=== PATIENT | female | born 1955 | race Caucasian/White ===

== ENCOUNTER 2020-12-14 06:58 | Emergency (ER) | payer MEDICARE ==
[~2020-12-14] VITALS: Ht 162.6 cm; Wt 62.0 kg
[~2020-12-14 06:58] MED LIST: AMBIEN5 MG PO; FLEXERIL OR; NAPROSYN500 MG PO; TRAMADOL HCL50 MG OR
[2020-12-14 07:53] VITALS: BP 175/78
[2020-12-14] MEDS ORDERED: PEPCID20 MG PO (07:53)
[2020-12-14] MEDS ORDERED: KEFLEX500 MG PO (07:53)
[2020-12-14] MEDS ORDERED: BENADRYL25 M1 PO (07:53)
[2020-12-14] MEDS ORDERED: PREDNISONE20 MG PO (07:53)
== END 2020-12-14 08:02 | disposition home or self-care (01) ==
LOC: ED 06:58
DX: L03.116 Cellulitis of left lower limb (principal); T63.461A Toxic effect of venom of wasps, accidental (unintentional), initial encounter

== ENCOUNTER 2021-01-24 07:09 | Emergency (ER) | payer MEDICARE ==
[~2021-01-24] VITALS: Ht 162.6 cm; Wt 61.3 kg
[~2021-01-24 07:09] MED LIST changes: +BENADRYL25 M1 PO; +KEFLEX500 MG PO; +PEPCID20 MG PO; +PREDNISONE20 MG PO
[2021-01-24 09:42] VITALS: BP 157/77
== END 2021-01-24 09:42 | disposition home or self-care (01) ==
LOC: ED 07:09
DX: S00.03XA Contusion of scalp, initial encounter (principal); W01.0XXA Fall on same level from slipping, tripping and stumbling without subsequent striking against object, initial encounter; S80.812A Abrasion, left lower leg, initial encounter; S90.512A Abrasion, left ankle, initial encounter; S90.812A Abrasion, left foot, initial encounter; Y93.K1 Activity, walking an animal; Y92.410 Unspecified street and highway as the place of occurrence of the external cause

== ENCOUNTER 2024-03-07 07:05 | Emergency (ER) | payer MEDICARE ==
[~2024-03-07] VITALS: Ht 162.6 cm; Wt 67.0 kg
[2024-03-07] MEDS ORDERED: IBUPROFEN600 MG PO (07:29)
[2024-03-07 07:57] VITALS: BP 166/93
== END 2024-03-07 08:03 | disposition home or self-care (01) ==
LOC: ED 07:05
DX: S63.501A Unspecified sprain of right wrist, initial encounter (principal); X50.0XXA Overexertion from strenuous movement or load, initial encounter; Y93.H9 Activity, other involving exterior property and land maintenance, building and construction